=== PATIENT | female | born 1995 | race Caucasian/White ===

== ENCOUNTER 2017-10-11 15:11 | Emergency (ER) | payer OTHER ==
[~2017-10-11] VITALS: Ht 157.5 cm; Wt 83.5 kg
[~2017-10-11 15:11] MED LIST: BEN50 PO
[2017-10-11 15:19] VITALS: BP 133/81
--- NOTE | 2017-10-11 21:22 | NUR ---
PT AMBULATED TO OF 5
--- NOTE | 2017-10-11 21:23 | NUR ---
21Y F BIB FAMILY C/O BILAT EAR PAIN X 3 DAYS WITH FEVER. PT DENIES ANY N/V/D, SOB, CP AT THE MOMENT. PT AAOX4, BREATHING IS UNLABORED AND CLEAR. PT STATES SHE TOOK THERAFLU AND DAYQUIL AT HOME BUT GOT NO RELIEF.
--- NOTE | 2017-10-11 21:30 | NUR ---
Patient being evaluated by physician at bedside.
[2017-10-11 22:08] VITALS: BP 129/81
--- NOTE | 2017-10-11 22:08 | NUR ---
Patient discharged with v/s stable. Written and verbal after care instructions given and explained. Patient alert, oriented and verbalized understanding of instructions. Ambulatory with steady gait. All questions addressed prior to discharge. ID band removed. Patient advised to follow up with PMD. Rx of MOTRIN 600MG AND PHENEGAN WITH CODEINE SYRUP given. Patient educated on indication of medication including possible reaction and side effects. Opportunity to ask questions provided and answered.
== END 2017-10-11 22:08 | disposition home or self-care (01) ==
LOC: MED 15:11
DX: J06.9 Acute upper respiratory infection, unspecified (principal)
CPT/HCPCS: 36415; 87804; 99285

== ENCOUNTER 2018-06-08 17:43 | Emergency (ER) | payer OTHER ==
[~2018-06-08] VITALS: Ht 160 cm; Wt 86.2 kg
[2018-06-08 17:54] VITALS: BP 135/75
--- NOTE | 2018-06-08 17:57 | NUR ---
PT AMBULATED BACK TO ER LOBBY, WAITING FOR AN OPEN ER BED.
--- NOTE | 2018-06-08 19:05 | NUR ---
PATIENT AMBULATED TO BED 4.
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
[2018-06-08 20:35] VITALS: BP 127/83
== END 2018-06-08 20:35 | disposition home or self-care (01) ==
LOC: MED 17:43
DX: S93.401A Sprain of unspecified ligament of right ankle, initial encounter (principal); W50.2XXA Accidental twist by another person, initial encounter; Y93.89 Activity, other specified; Y92.89 Other specified places as the place of occurrence of the external cause; Y99.8 Other external cause status
CPT/HCPCS: 73610; 99284

== ENCOUNTER 2019-01-20 16:43 | Emergency (ER) | payer OTHER ==
[~2019-01-20] VITALS: Ht 162.6 cm; Wt 88.5 kg
[2019-01-20 18:12] LABS: BASOPHILS # (AUTO) 0.1 K/uL (0.00-0.22); BASOPHILS % (AUTO) 0.9 % (0.0-2.0); EOSINOPHILS # (AUTO) 0.3 K/uL (0-0.4); EOSINOPHILS % (AUTO) 3.3 % (0.0-4.0); HEMOGLOBIN 14.5 g/dL (12.0-16.0); LYMPHOCYTES # (AUTO) 2.1 K/uL (2.5-16.5); LYMPHOCYTES % (AUTO) 25.9 % (20.5-51.1); MEAN CORPUSCULAR HEMOGLOBIN 32 pg (27-31); MEAN CORPUSCULAR HGB CONC 35 g/dL (33-37); MEAN CORPUSCULAR VOLUME 92.7 fL (80-94); MONOCYTES # (AUTO) 0.6 K/uL (0.8-1.0); MONOCYTES % (AUTO) 7.1 % (1.7-9.3); NEUTROPHILS # (AUTO) 5.1 K/uL (1.8-7.7); NEUTROPHILS % (AUTO) 62.8 % (42.2-75.2); PLATELET COUNT (AUTO) 260 K/uL (140-450); RED BLOOD CELL COUNT(AUTO) 4.53 MIL/uL (4.20-5.40); RED CELL DISTRIBUTION WIDTH 12.6 % (11.6-13.7); WHITE BLOOD COUNT (AUTO) 8.1 K/uL (4.8-10.8)
[2019-01-20 18:14] LABS: APPEARANCE,URINE HAZY (CLEAR); BILIRUBIN,URINE NEGATIVE (NEGATIVE); BLOOD, URINE 3+ (NEGATIVE); COLOR,URINE ORANGE (YELLOW); LEUKOCYTE ESTERASE ,URINE TRACE (NEGATIVE); NITRITE, URINE NEGATIVE (NEGATIVE); PH,URINE 8.5 (5.0-9.0); UGLUCOSE NEGATIVE (NEGATIVE)
--- NOTE | 2019-01-20 18:23 | NUR ---
PT AMB TO ER BED 5 BIB FAMILY C/O VAGINAL BLEEDING X 2 WEEKS, PT STS " 1-2 PADS IN 1-1.5 HOURS." OZ FINGER TINGLING- NO TINGLING AT HTIS TIME. PT DENIES ANY TRAUMA, N/V/D; SKIN IS INTACT, PINK/WARM/DRY; AAOX4, PERRL, WITH EVEN AND STEADY GAIT; LUNGS CLEAR BL, BREATHING UNLABORED; HR EVEN AND REGULAR. BS ACTIVE X4, NO TENDERNESS TO PALPATION, NO HEPATOSPLENOMEGALLY PALPATED, RESONANT TO PERCUSSION; PT DENIES ANY FEVER, CP, SOB, OR COUGH AT THIS TIME; PT STATES 0/10 PAIN AT THIS TIME; VSS; PATIENT POSITIONED FOR COMFORT; HOB ELEVATED; BEDRAILS UP X2; BED DOWN.
[2019-01-20 18:26] LABS: PROTHROMBIN TIME 10.2 secs (10.8-13.4)
[2019-01-20 18:29] LABS: RBC,URINE TOO NUMEROUS TO COUN /HPF (0-5); WBC,URINE 0-5 /HPF (0-5)
--- NOTE | 2019-01-20 19:42 | NUR ---
PT IN BED, MOTHER AT BEDSIDE. PT ACTING APPROPRIATLY, VSS. PT STATES 0/10 PAIN AT THIS TIME. SKIN WARM, DRY AND INTACT.
--- NOTE | 2019-01-20 19:53 | NUR ---
Dr. Suarez evaluating patient at bedside.
--- NOTE | 2019-01-20 19:58 | NUR ---
PT AMBULATED W/STEADY GATE TO BR.
[2019-01-20 20:25] VITALS: BP 126/81
--- NOTE | 2019-01-20 20:25 | NUR ---
Patient discharged with v/s stable. Written and verbal after care instructions given and explained. Patient verbalized understanding. Ambulatory with steady gait. All questions addressed prior to discharge. Advised to follow up with PMD.
== END 2019-01-20 20:25 | disposition home or self-care (01) ==
LOC: MED 16:43
DX: N94.6 Dysmenorrhea, unspecified (principal); Z79.899 Other long term (current) drug therapy
CPT/HCPCS: 36415; 81001; 81025; 85025; 85610; 85730; 99283

== ENCOUNTER 2019-04-14 10:38 | Emergency (ER) | payer OTHER ==
[~2019-04-14] VITALS: Ht 167.6 cm; Wt 93.0 kg
[2019-04-14 10:53] VITALS: BP 122/75
--- NOTE | 2019-04-14 10:58 | NUR ---
PT AMB TO BED 9 WITH STEADY GAIT
--- NOTE | 2019-04-14 11:00 | NUR ---
PT BIB SELF TO THE ED WITH THE CHIEF C/O VAGINAL BLEEDING. PT STATES IT HAS BEEN 2 MONTHS SHE IS HAVING VAGINAL BLEED ON AND OFF. REPORTS HEAVY BLEEDING. BLEEDING WAS WORSE FOR LAST 2 WEEKS STOPPED FOR 2 DAYS AND STARTED BLEEDING AGAIN. PT WAS SEEN BY PCP 3 MONTHS AGO. PCP RECOMMENDED TO VISIT GYNAECOLOGIST BUT PT HAS NOT SEEN BY GYNAECOLOGIST YET. DENIES PREGNENCY. DENIES N/V/D. DENIES FEVER. REPORTS LLQ PAIN FOR 3 DAYS. PAIN OF 8/10 AT THIS TIME. DENIES OTHER PROBLEMS.
[2019-04-14] MEDS ORDERED: HYDROcodone/APAP 5/325 MG 1 TAB TAB PO ONE (12:00)
[2019-04-14] MEDS ORDERED: IBUPROFEN 800 MG TAB PO ONE (12:00)
--- NOTE | 2019-04-14 12:22 | NUR ---
Dr. Hunt evaluating patient at bedside.
[2019-04-14 12:30] LABS: BASOPHILS # (AUTO) 0.1 K/uL (0.00-0.22); BASOPHILS % (AUTO) 0.7 % (0.0-2.0); EOSINOPHILS # (AUTO) 0.3 K/uL (0-0.4); EOSINOPHILS % (AUTO) 3.3 % (0.0-4.0); HEMATOCRIT 41.5 % (36-48); HEMOGLOBIN 14.1 g/dL (12.0-16.0); LYMPHOCYTES # (AUTO) 1.9 K/uL (2.5-16.5); LYMPHOCYTES % (AUTO) 23.2 % (20.5-51.1); MEAN CORPUSCULAR HEMOGLOBIN 32 pg (27-31); MEAN CORPUSCULAR HGB CONC 34 g/dL (33-37); MEAN CORPUSCULAR VOLUME 93.7 fL (80-94); MONOCYTES # (AUTO) 0.6 K/uL (0.8-1.0); NEUTROPHILS # (AUTO) 5.4 K/uL (1.8-7.7); NEUTROPHILS % (AUTO) 65.8 % (42.2-75.2); PLATELET COUNT (AUTO) 246 K/uL (140-450); RED BLOOD CELL COUNT(AUTO) 4.43 MIL/uL (4.20-5.40); RED CELL DISTRIBUTION WIDTH 12.5 % (11.6-13.7); WHITE BLOOD COUNT (AUTO) 8.2 K/uL (4.8-10.8)
[2019-04-14 12:31] LABS: APPEARANCE,URINE CLEAR (CLEAR); BILIRUBIN,URINE NEGATIVE (NEGATIVE); BLOOD, URINE 2+ (NEGATIVE); COLOR,URINE YELLOW (YELLOW); LEUKOCYTE ESTERASE ,URINE NEGATIVE (NEGATIVE); NITRITE, URINE NEGATIVE (NEGATIVE); PH,URINE 5.5 (5.0-9.0); UGLUCOSE NEGATIVE (NEGATIVE)
--- NOTE | 2019-04-14 12:31 | NUR ---
US tech at bedside for exam.
[2019-04-14 12:37] LABS: RBC,URINE 11-20 (MOD) /HPF (0-5); WBC,URINE 0-5 /HPF (0-5)
[2019-04-14 12:40] LABS: ANION GAP 8.3 (8-16); CARBON DIOXIDE 32.3 mmol/L (21-32); CREATININE 0.8 mg/dL (0.6-1.3); POTASSIUM 3.6 mmol/L (3.5-5.1)
[2019-04-14 12:46] LABS: ALBUMIN 3.5 g/dL (3.4-5.0); TOTAL BILIRUBIN 0.3 mg/dL (0.0-1.0)
[2019-04-14 14:07] VITALS: BP 129/90
--- NOTE | 2019-04-14 14:07 | NUR ---
Patient discharged with v/s stable. Written and verbal after care instructions given and explained. Patient alert, oriented and verbalized understanding of instructions. Ambulatory with steady gait. All questions addressed prior to discharge. ID band removed. Patient advised to follow up with PMD. Rx of IBUPRFOEN, NORCO, MEDROXYPROGESTERONE given. Patient educated on indication of medication including possible reaction and side effects. Opportunity to ask questions provided and answered. PT INSTRUCTED TO NOT DRIVE AFTER TAKING NORCO. PT GIVEN EXCUSE FOR WORK TODAY.
== END 2019-04-14 14:07 | disposition home or self-care (01) ==
LOC: MED 10:38
DX: N83.201 Unspecified ovarian cyst, right side (principal); N83.202 Unspecified ovarian cyst, left side; D64.9 Anemia, unspecified; Z79.899 Other long term (current) drug therapy
CPT/HCPCS: 36415; 76830; 80053; 81001; 81025; 83690; 85025; 99284; Q0092

== ENCOUNTER 2020-01-13 00:22 | Emergency (ER) | payer OTHER ==
[~2020-01-13] VITALS: Ht 160 cm; Wt 97.5 kg
[2020-01-13 00:28] VITALS: BP 148/97
[2020-01-13] MEDS ORDERED: diphenhydrAMINE 50 MG CAP PO ONE (00:45)
[2020-01-13 00:55] VITALS: BP 148/97
== END 2020-01-13 00:55 | disposition home or self-care (01) ==
LOC: MED 00:41
DX: T78.1XXA Other adverse food reactions, not elsewhere classified, initial encounter (principal); Z79.899 Other long term (current) drug therapy; X58.XXXA Exposure to other specified factors, initial encounter
CPT/HCPCS: 81002; 81025; 99283; Q0163

== ENCOUNTER 2020-03-23 03:51 | Emergency (ER) | payer OTHER ==
[~2020-03-23] VITALS: Ht 162.6 cm; Wt 76.7 kg
--- NOTE | 2020-03-23 03:54 | NUR ---
PT AMBULATED TO ER BED 02
[2020-03-23 03:57] VITALS: BP 134/91
--- NOTE | 2020-03-23 04:05 | NUR ---
PT HAS HAD A SORE THROAT X 2 DAYS AND DEVELOPED A FEVER AND CHILLS YESTERDAY. DENIES SOB, NO COUGH, NO N/V. O2 SAT ON RA 99%. BED IN LOWEST POSITION SIDE RAIL UP X 1 NKA NO MED HX
--- NOTE | 2020-03-23 04:06 | NUR ---
PT GIVEN A CUP FOR UA, NOT ABLE TO GO AT THIS TIME
--- NOTE | 2020-03-23 04:16 | NUR ---
GAVE PT WATER TO EXPEDITE COLLECTING UA
[2020-03-23 04:38] VITALS: BP 134/91
--- NOTE | 2020-03-23 04:39 | NUR ---
Patient discharged with v/s stable. Written and verbal after care instructions given and explained. Patient alert, oriented and verbalized understanding of instructions. Ambulatory with steady gait. All questions addressed prior to discharge. ID band removed. Patient advised to follow up with PMD. Rx of MOTRIN AND ZITHROMAX given. Patient educated on indication of medication including possible reaction and side effects. Opportunity to ask questions provided and answered.
== END 2020-03-23 04:39 | disposition home or self-care (01) ==
LOC: MED 03:51
DX: J02.8 Acute pharyngitis due to other specified organisms (principal); R03.0 Elevated blood-pressure reading, without diagnosis of hypertension; Z79.899 Other long term (current) drug therapy
CPT/HCPCS: 81002; 81025; 99283

== ENCOUNTER 2020-05-12 00:24 | Emergency (ER) | payer OTHER ==
[~2020-05-12] VITALS: Ht 162.6 cm; Wt 98.4 kg
[2020-05-12 00:35] VITALS: BP 143/96
[2020-05-12 01:37] VITALS: BP 143/96
== END 2020-05-12 01:37 | disposition home or self-care (01) ==
LOC: MED 00:24
DX: T63.441A Toxic effect of venom of bees, accidental (unintentional), initial encounter (principal); L03.114 Cellulitis of left upper limb; Z79.899 Other long term (current) drug therapy
CPT/HCPCS: 81002; 81025; 99283

== ENCOUNTER 2020-10-03 02:57 | Emergency (ER) | payer OTHER ==
[~2020-10-03] VITALS: Ht 160 cm; Wt 102.5 kg
[2020-10-03 03:07] VITALS: BP 149/94
--- NOTE | 2020-10-03 03:08 | NUR ---
triaged and waiting in lobby.
[2020-10-03] MEDS ORDERED: diphenhydrAMINE 50 MG/ML VIAL IM ONE ×2 (04:40→05:05)
[2020-10-03 05:17] VITALS: BP 149/94
== END 2020-10-03 05:17 | disposition home or self-care (01) ==
LOC: MED 02:57
DX: F41.9 Anxiety disorder, unspecified (principal); Z79.899 Other long term (current) drug therapy
CPT/HCPCS: 81025; 93005; 96372; 99283; J1200

== ENCOUNTER 2020-10-10 08:40 | Emergency (ER) | payer OTHER ==
[~2020-10-10] VITALS: Ht 160 cm; Wt 99.8 kg
[2020-10-10 08:57] VITALS: BP 114/42
--- NOTE | 2020-10-10 09:04 | NUR ---
MINGO. HANDED ON URINE CUP.
[2020-10-10] MEDS ORDERED: NACL 0.9% 1,000 ML IV ONE (09:05)
--- NOTE | 2020-10-10 09:08 | NUR ---
24 y/o female from home c/o lower abd pain with vaginal bleeding x 2 wks. Pt states she started new control 1 month ago. States 10/10 lower abd cramping at this time. Abd nontender to palp. Bowel sounds present. States slight change in appetite. Awake and alert. VSS
--- NOTE | 2020-10-10 09:10 | NUR ---
20G IV placed to left ac, blood drawn at this time and given to lab.
[2020-10-10 09:19] LABS: BASOPHILS % (AUTO) 0.6 % (0.0-2.0); EOSINOPHILS % (AUTO) 0.3 % (0.0-4.0); HEMATOCRIT 45.5 % (36-48); HEMOGLOBIN 15.9 g/dL (12.0-16.0); LYMPHOCYTES # (AUTO) 1.4 K/uL (2.5-16.5); LYMPHOCYTES % (AUTO) 16.9 % (20.5-51.1); MEAN CORPUSCULAR HEMOGLOBIN 32 pg (27-31); MEAN CORPUSCULAR HGB CONC 35 g/dL (33-37); MEAN CORPUSCULAR VOLUME 92.8 fL (80-94); MONOCYTES # (AUTO) 0.4 K/uL (0.8-1.0); MONOCYTES % (AUTO) 4.7 % (1.7-9.3); NEUTROPHILS # (AUTO) 6.6 K/uL (1.8-7.7); NEUTROPHILS % (AUTO) 77.5 % (42.2-75.2); PLATELET COUNT (AUTO) 277 K/uL (140-450); RED BLOOD CELL COUNT(AUTO) 4.91 MIL/uL (4.20-5.40); RED CELL DISTRIBUTION WIDTH 12.4 % (11.6-13.7); WHITE BLOOD COUNT (AUTO) 8.5 K/uL (4.8-10.8)
[2020-10-10 09:32] LABS: ALBUMIN 4.6 g/dL (3.4-5.0); ANION GAP 15.3 (8-16); CARBON DIOXIDE 27.2 mmol/L (21-32); CREATININE 0.9 mg/dL (0.6-1.3); POTASSIUM 3.5 mmol/L (3.5-5.1); TOTAL BILIRUBIN 0.7 mg/dL (0.0-1.0)
[2020-10-10] MEDS ORDERED: ONDANSETRON 4 MG/2 ML VIAL IVP ONE (09:40)
[2020-10-10] MEDS ORDERED: KETOROLAC 30 MG/ML VIAL IVP ONE (09:40)
--- NOTE | 2020-10-10 10:18 | NUR ---
IV d/c and 2x2 gauze placed to IV site, bleeding controlled.
[2020-10-10 10:21] VITALS: BP 126/88
--- NOTE | 2020-10-10 10:21 | NUR ---
Patient discharged with v/s stable. Written and verbal after care instructions given and explained. Patient alert, oriented and verbalized understanding of instructions. Ambulatory with steady gait. All questions addressed prior to discharge. ID band removed. Patient advised to follow up with PMD. Rx of Zofran 4mg, Motrin 800mg, and Marceline 5mg-325mg given. Patient educated on indication of medication including possible reaction and side effects. Opportunity to ask questions provided and answered.
== END 2020-10-10 10:21 | disposition home or self-care (01) ==
LOC: MED 08:40
DX: R10.11 Right upper quadrant pain (principal); R11.0 Nausea; N89.8 Other specified noninflammatory disorders of vagina; Z79.899 Other long term (current) drug therapy
CPT/HCPCS: 36415; 80053; 81002; 81025; 85025; 96361; 96374; 96375; 99284; J1885; J2405

== ENCOUNTER 2021-11-01 14:10 | Emergency (ER) | payer OTHER ==
[~2021-11-01] VITALS: Ht 165.1 cm; Wt 86.2 kg
[2021-11-01 14:21] VITALS: BP 126/81
--- NOTE | 2021-11-01 14:25 | NUR ---
TENT1
[2021-11-01] MEDS ORDERED: TRAM50TA1 PO (14:26)
--- NOTE | 2021-11-01 14:33 | NUR ---
NOVEL SWAB DONE AND TAKEN TO THE LAB.
--- NOTE | 2021-11-01 14:42 | NUR ---
Patient discharged with v/s stable. Written and verbal after care instructions given and explained. Patient alert, oriented and verbalized understanding of instructions. Ambulatory with steady gait. All questions addressed prior to discharge. ID band removed. Patient advised to follow up with PMD. Rx of TRAMADOL HCI given. Opportunity to ask questions provided and answered.
== END 2021-11-01 14:42 | disposition home or self-care (01) ==
LOC: MED 14:10
DX: U07.1 COVID-19 (principal); B34.9 Viral infection, unspecified; R51.9 Headache, unspecified; Z79.899 Other long term (current) drug therapy
CPT/HCPCS: 99283; U0003